=== PATIENT | male | born 1995 | race African-American/Black ===

== ENCOUNTER 2024-03-30 21:09 | Emergency (ER) | payer MEDICAID ==
[~2024-03-30] VITALS: Ht 175.3 cm; Wt 91.0 kg
[2024-03-30 21:34] VITALS: BP 110/53; PULSE 97; RESP 18; TEMP 97.8; O2SAT 99
[2024-03-30] MEDS ORDERED: CEFTRIAXONE SODIUM 500MG VIAL IM ONE (21:45)
[2024-03-30] MEDS ORDERED: CEFTRIAXONE SODIUM 500MG VIAL IM NR (23:00)
[2024-03-30 23:08] LABS: CLARITY URINE CLEAR (CLEAR); COLOR URINE DARK YELLOW (YELLOW); GLUCOSE URINE NEGATIVE (NEGATIVE); KETONES URINE TRACE (NEGATIVE); LEUKOCYTE ESTERASE URINE NEGATIVE (NEGATIVE); NITRITE URINE NEGATIVE (NEGATIVE); OCCULT BLOOD URINE NEGATIVE (NEGATIVE); PROTEIN URINE TRACE (NEGATIVE); SPECIFIC GRAVITY URINE 1.029 (1.005-1.030)
[2024-03-30] MEDS ORDERED: DOXY-244 MT (23:58)
[2024-03-31 00:55] LABS: CALCIUM OXALATE CRYSTALS URINE 4+ /lpf
[2024-03-31 00:56] LABS: BACTERIA URINE TRACE; MUCUS URINE 4+ /lpf (NONE/TRACE); RBC URINE 0-2 /hpf (0-2); SQUAMOUS EPITHELIAL CELL URINE FEW /lpf (RARE/1+); WBC URINE 0-2 /hpf (0-2)
[2024-04-02 05:09] LABS: CHLAMYDIA TRACHOMATIS NAA Negative (Negative); NEISSERIA GONORRHOEAE NAA Negative (Negative)
== END 2024-03-31 01:06 | disposition home or self-care (01) ==
LOC: ER 21:09
DX: A64 Unspecified sexually transmitted disease (principal)
CPT/HCPCS: 81003; 87491; 87591; 99283; J0696